=== PATIENT | female | born 1945 | race Caucasian/White ===

== ENCOUNTER 2023-09-16 22:34 | Emergency (ER) | payer MEDICARE, OTHER, SELFPAY ==
[2023-09-16 22:35] VITALS: BP 170/70; PULSE 103; RESP 16; TEMP 36.7; O2SAT 95; BMI 38.2
--- NOTE | 2023-09-16 22:48 | ED_ITS ---
HPI - General Adult 2 General: Chief complaint: GI Bleed Stated complaint: rectal bleeding Time Seen by Provider: 09/16/23 22:45 History of Present Illness: Presents to the ER with complaints of rectal bleeding. Patient is on Plavix for aortic valve replacement. Patient had a colonoscopy last for rectal bleeding. They did some biopsies during her colonoscopy. Patient started her Plavix back as instructed on Tuesday of this week and has had light bleeding ever since but today she had an episode of heavy bleeding and got lightheaded and dizzy. Patient stated she was in her recliner and went to get to the kitchen got lightheaded dizzy sat down on the floor and then when she got up to go to her bedroom she left a trail of bright red blood with clots all the way to the bathroom. Patient is lightheaded and dizzy currently and patient's pulse is 103 bpm. Blood pressure 170/70 Review of Systems 2 General: Reports: 10 or more systems reviewed and unremarkable except in HPI and below Physical Exam 2 Const: COMMON NORMALS: no acute distress, average body habitus, patient oriented x3, no limitations, healthy appearing, alert and well nourished HENMT: COMMON NORMALS: normocephalic, atraumatic, hearing grossly normal bilaterally, external ears normal, Normal external nose present, moist oral mucous membranes and oropharynx normal HEAD & SCALP: normocephalic and atraumatic NOSE: Normal external nose present EXTERNAL EAR: Yes external ears normal Neck/C-Spine: COMMON NORMALS: no JVD Chest: COMMONS NORMALS: normal inspection of the chest and normal palpation of entire chest wall Resp: COMMON NORMALS: normal respiratory effort, No retractions, No use of accessory muscles and clear to auscultation bilaterally AUSCULTATION: clear to auscultation bilaterally Cardio: COMMON NORMALS: no JVD, regular rate, regular rhythm, S1 normal heart sound present, S2 normal heart sound present, No gallops present (Cardio), No clicks present (Cardio) and No rub (Cardio) RATE: regular rate RHYTHM: r egular rhythm HEART SOUNDS: S1 normal heart sound present and S2 normal heart sound present GI: COMMON NORMALS: Normal to inspection, nondistended, normoactive bowel sounds present, Soft to palpation, non-tender, No hepatosplenomegaly present and no masses PALPATION: Yes Soft to palpation and Yes No hepatosplenomegaly present Neuro: COMMON NORMALS: patient oriented x3 SENSORIUM/ORIENTATION: Yes alert Course 2 Vital Signs: Vital signs: Vital Signs Temperature 98.1 F 09/16/23 22:35 Pulse Rate 103 H 09/16/23 22:35 Respiratory Rate 16 09/16/23 22:35 Blood Pressure 170/70 09/16/23 22:35 Pulse Oximetry 95 09/16/23 22:35 Oxygen Delivery Me thod Room Air 09/16/23 22:35 MDM - General Adult Medical Decision Making Patient physical exam performed and lab work. Patient's white count was elevated at 16.6 probably due to the stress of the situation as she is having no infectious type symptoms. Hemoglobin 8.9 hematocrit 28.1 BUN/creatinine 27 1.3, patient's abdomen pelvic CT with contrast did not show any acute process in the abdomen. These results was discussed with the patient and family. Patient be discharged home. Patient should stay off her Plavix at least 2 days until and talk to her register of wills about how long she can stay off of it. Differential Diagnosis Coagulopathy, rectal bleeding, Medical Records I reviewed the patient's medical records. Lab Data I reviewed the patient's lab results. 09/16/23 22:59 09/16/23 22:59 Radiology Impressions Abdomen/Pelvis CT 09/16/23 23:37 IMPRESSION: 1. Negative for focal acute inflammatory process in the abdomen or pelvis. 2. Small umbilical hernia containing omentum without bowel. 3. T12 vertebral body benign hemangioma. 4. Bilateral renal cysts, negative for follow-up advised. COMMENTS: Consistent with the [employer]'s Incidental Findings Committee white paper (J Am Shayan Radiol 2018): Any incidental renal lesion less than 1 cm or classified as too small to characterize, or any incidental cystic renal lesion characterized as simple-appearing, is likely benign. No follow-up imaging is recommended for these lesions per consensus recommendations based on imaging criteria. Laboratory Results WBC 16.65 10^3/uL (3.29-11.43) H 09/16/23 22:59 RBC 2.92 10^6/uL (3.85-5.65) L 09/16/23 22:59 Hgb 8.90 g/dL (11.27-16.99) L 09/16/23 22:59 Hct 28.1 % (36-47) L 09/16/23 22:59 MCV 96.2 fl (85-98) 09/16/23 22:59 MCH 30.5 pg (27-33) 09/16/23 22:59 MCHC 31.7 g/dL (30-55) 09/16/23 22:59 RDW 13.5 % (12.1-15.1) 09/16/23 22:59 Plt Count 367 10^3/cmm (157-399) 09/16/23 22:59 MPV 9.4 fL (7.4-10.4) 09/16/23 22:59 Neut % (Auto) 73.3 % 09/16/23 22:59 Lymph % (Auto) 17.0 % 09/16/23 22:59 Polk % (Auto) 6.1 % 09/16/23 22:59 Eos % (Auto) 1.5 % 09/16/23 22:59 Baso % (Auto) 0.6 % 09/16/23 22:59 Neut # (Auto) 12.21 10^3/uL (1.8-7.7) H 09/16/23 22:59 Lymph # (Auto) 2.8 10^3/uL (0.8-4.8) 09/16/23 22:59 Polk # (Auto) 1.0 10^3/uL (0.2-0.9) H 09/16/23 22:59 Eos # (Auto) 0.3 10^3/uL (0.0-0.8) 09/16/23 22:59 Baso # (Auto) 0.1 10^3/uL (0.0-0.1) 09/16/23 22:59 Nucleated RBC % (auto) 0 % 09/16/23 22:59 Nucleated RBCs # 0.0 /100WBC 09/16/23 22:59 PT 16.20 SECONDS (12.1-14.9) H 09/16/23 22:59 INR 1.26 (0.8-1.2) H 09/16/23 22:59 Sodium 138 mmol/L (136-145) 09/16/23 22:59 Potassium 4.3 mmol/L (3.5-5.1) 09/16/23 22:59 Chloride 105 mmol/L (98-107) 09/16/23 22:59 Carbon Dioxide 19 mmol/L (22-29) L 09/16/23 22:59 Anion Gap 18.3 (5-19) 09/16/23 22:59 BUN 27 mg/dL (8-23) H 09/16/23 22:59 Creatinine 1.3 mg/dL (0.5-0.9) H 09/16/23 22:59 GFR Calculation Not Reportable 09/16/23 22:59 Glucose 198 mg/dL (65-115) H 09/16/23 22:59 Calculated Osmolality 297 mOsm/kg (285-295) H 09/16/23 22:59 Calcium 8.3 mg/dL (8.5-10.5) L 09/16/23 22:59 Magnesium 2.2 mg/dL (1.7-2.3) 09/16/23 22:59 Total Bilirubin 0.2 mg/dL (0.15-1.2) 09/16/23 22:59 AST 13 U/L (0-32) 09/16/23 22:59 ALT 10 U/L (0-33) 09/16/23 22:59 Alkaline Phosphatase 111 U/L (35-105) H 09/16/23 22:59 Total Protein 6.4 g/dL (6.6-8.7) L 09/16/23 22:59 Albumin 3.7 g/dL (3.5-5.2) 09/16/23 22:59 Globulin 2.7 g/dL (1.3-4.6) 09/16/23 22:59 Blood Type O Positive 09/16/23 22:54 Rho(D) Type Rh positive 09/16/23 22:54 Antibody Screen Negative 09/16/23 22:54 All radiology interpretation(s) finalized by discharge Discharge Plan Discharge Patient Disposition: Home Clinical Impression: Hematochezia, Lower gastrointestinal hemorrhage, Chronic anticoagulation Condition: Stable Discharge Orders: Discharge ED (Routine); Ordered 09/17/23 Ordered By: Michael Solis Referrals: Moshe,HINA Adams [Primary Care Provider] - Patient Instructions: Gastrointestinal Bleeding (ED) Activity Restrictions/Additional Instructions: Your evaluation in the ER showed your hemoglobin was 8.9, this is a little low but not low enough to need a transfusion. Your abdomen pelvis CT did not show any pools of blood or bleeding processes in your abdomen or colon. Your bleeding is thought to be due from your anticoagulation and from the colonoscopy with biopsies. Please hold your blood thinner for the next 2 days and call your register of wills on Tuesday to see if it is safe to continue holding it or not. If you get lightheaded dizzy feel you are in a pass out or your heart is racing please return to the ER. Otherwise suspect more bleeding per rectum or blood in your stool until all the blood is cleaned out. Coding Level of Care Code ED [employer] for Serenity Tyson
[2023-09-16 23:06] LABS: Basophils # 0.1 10^3/uL (0.0-0.1); Basophils % 0.6 %; Eosinophils # 0.3 10^3/uL (0.0-0.8); Eosinophils % 1.5 %; Hematocrit 28.1 % (36-47); Lymphocytes # 2.8 10^3/uL (0.8-4.8); Mean Corpuscular HGB Conc 31.7 g/dL (30-55); Mean Corpuscular Hemoglobin 30.5 pg (27-33); Mean Corpuscular Volume 96.2 fl (85-98); Mean Platelet Volume 9.4 fL (7.4-10.4); Monocytes % 6.1 %; Neutrophils # 12.21 10^3/uL (1.8-7.7); Neutrophils % 73.3 %; Nucleated Red Blood Cells % 0 %; Platelet Count 367 10^3/cmm (157-399); Red Blood Count 2.92 10^6/uL (3.85-5.65); Red Cell Distribution Width 13.5 % (12.1-15.1); White Blood Count 16.65 10^3/uL (3.29-11.43)
[2023-09-16 23:26] LABS: INR 1.26 (0.8-1.2)
[2023-09-16 23:35] LABS: Alanine Aminotransferase 10 U/L (0-33); Albumin Level 3.7 g/dL (3.5-5.2); Alkaline Phosphatase 111 U/L (35-105); Anion Gap 18.3 (5-19); Aspartate Amino Transferase 13 U/L (0-32); Blood Urea Nitrogen 27 mg/dL (8-23); Calcium 8.3 mg/dL (8.5-10.5); Carbon Dioxide 19 mmol/L (22-29); Chloride 105 mmol/L (98-107); Creatinine Clr Calc Pharmacy 42.0619; Globulin 2.7 g/dL (1.3-4.6); Glucose 198 mg/dL (65-115); Magnesium 2.2 mg/dL (1.7-2.3); Osmolality Calculated 297 mOsm/kg (285-295); Potassium 4.3 mmol/L (3.5-5.1); Sodium 138 mmol/L (136-145); Total Bilirubin 0.2 mg/dL (0.15-1.2); Total Protein 6.4 g/dL (6.6-8.7)
--- NOTE | 2023-09-16 23:37 | CTR_ITS ---
PROCEDURE INFORMATION: Exam: CT Abdomen And Pelvis With Contrast Exam date and time: 09/16/2023 11:45 PM Age: 77 years old Clinical indication: Prior surgery; Surgery date: 6+ months; Surgery type: Gb. Appy. Bladder. Patient HX: Profuse rectal bleeding. Colonoscopy on 09/08/2023. Currently on plavix. ; Additional info: Gi bleed, hematochezia, on plavix TECHNIQUE: Imaging protocol: Computed tomography of the abdomen and pelvis with contrast. Radiation optimization: All CT scans at this facility use at least one of these dose optimization techniques: automated exposure control; mA and/or kV adjustment per patient size (includes targeted exams where dose is matched to clinical indication); or iterative reconstruction. Contrast material: OMNI 350; Contrast volume: 80 ml; Contrast route: INTRAVENOUS (IV); COMPARISON: US abdomen limited [id number] 07/18/2018 3:55 PM RADIATION DOSE METRICS: Total DLP (mGy-cm): 913.84 FINDINGS: Heart: TAVR. Liver: Normal. No mass. Gallbladder and bile ducts: Normal. No calcified stones. No ductal dilation. Pancreas: Normal. No ductal dilation. Spleen: Normal. No splenomegaly. Adrenal glands: Normal. No mass. Kidneys and ureters: Bilateral renal cysts, negative for follow-up advised. Stomach and bowel: Unremarkable. No obstruction. No mucosal thickening. Appendix: No evidence of appendicitis. Intraperitoneal space: Unremarkable. No free air. No significant fluid collection. Vasculature: Unremarkable. No abdominal aortic aneurysm. Lymph nodes: Unremarkable. No enlarged lymph nodes. Urinary bladder: Unremarkable as visualized. Reproductive: Unremarkable as visualized. Bones/joints: T12 vertebral body benign hemangioma. Soft tissues: Small umbilical hernia containing omentum without bowel. CT/CT abdomen pelvis w con* [id number] IMPRESSION: 1. Negative for focal acute inflammatory process in the abdomen or pelvis. 2. Small umbilical hernia containing omentum without bowel. 3. T12 vertebral body benign hemangioma. 4. Bilateral renal cysts, negative for follow-up advised. COMMENTS: Consistent with the [employer]'s Incidental Findings Committee white paper (J Am Shayan Radiol 2018): Any incidental renal lesion less than 1 cm or classified as too small to characterize, or any incidental cystic renal lesion characterized as simple-appearing, is likely benign. No follow-up imaging is recommended for these lesions per consensus recommendations based on imaging criteria.
[2023-09-16] MEDS: iohexol 350 mg/mL 500 mL Btl (per mL) IV (23:50)
[2023-09-17 01:09] VITALS: BP 170/70; PULSE 103; RESP 16; TEMP 36.7; O2SAT 95
== END 2023-09-17 01:12 | disposition home or self-care (01) ==
PROVIDERS: Emergency Provider Emergency Medicine; PCP Nurse Practitioner Family
DX: K92.1 Melena (principal); D68.318 Other hemorrhagic disorder due to intrinsic circulating anticoagulants, antibodies, or inhibitors; Z79.02 Long term (current) use of antithrombotics/antiplatelets
CPT/HCPCS: 74177; 80053; 83735; 85025; 85610; 86850; 86900; 99285; Q9967

== ENCOUNTER → 2023-12-08 11:33 | Outpatient (BNVA) | payer MEDICARE, OTHER, SELFPAY | PROVIDERS: PCP Nurse Practitioner Family; Visit Provider Podiatrist Foot & Ankle Surgery | DX: M1A.0710 Idiopathic chronic gout, right ankle and foot, without tophus (tophi) | CPT/HCPCS: 73630; 99203 ==

== ENCOUNTER → 2024-10-23 14:34 | Outpatient (BNVA) | payer MEDICARE, OTHER, SELFPAY | PROVIDERS: PCP Nurse Practitioner Family; Visit Provider Podiatrist Foot & Ankle Surgery | DX: M10.00 Idiopathic gout, unspecified site (principal); M79.671 Pain in right foot; Z87.39 Personal history of other diseases of the musculoskeletal system and connective tissue | CPT/HCPCS: 20600; 73630; 99214; J1100; J3301; J9999 ==